=== PATIENT | female | born 1935 | race Caucasian/White ===

== ENCOUNTER → 2024-01-19 14:35 | Outpatient (REF) | payer OTHER, SELFPAY | LOC: WDC 14:35 | PROVIDERS: ATTENDING PHYSICIAN Family Medicine | DX: Z12.31 Encounter for screening mammogram for malignant neoplasm of breast (principal) | CPT/HCPCS: 77063; 77067 ==

== ENCOUNTER 2024-08-31 12:15 | Emergency (ER) | payer OTHER, SELFPAY ==
[2024-08-31 12:18] VITALS: BP 180/97
[2024-08-31 12:43] LABS: % Basophils 0.7 % (0-2); % Eosinophils 0.2 % (0-6); % Immature Granulocytes 0.2 % (0-0.5); % Lymphocytes 26.5 % (20.5-51.1); % Monocytes 8.2 % (1.7-9.3); % Neutrophils 64.2 % (42.2-75.2); Absolute Lymphocytes 1.2 10^3/uL (1.2-3.4); Absolute Monocytes 0.4 10^3/uL (0.1-0.6); Absolute Neutrophils 2.9 10^3/uL (1.4-6.5); Hematocrit 40.6 % (37.0-47.0); Hemoglobin 12.8 g/dL (12.0-16.0); Mean Corp Hgb Conc. 31.5 g/dL (33.0-37.0); Mean Corpuscular Hgb 29.4 pg (27.0-31.0); Mean Corpuscular Volume 93.1 fL (81.0-99.0); Mean Platelet Volume 9.7 fL (7.4-10.4); Nucleated Red Blood Cells % 0 %; Platelet Count 148 10^3/uL (130-400); Red Blood Cell Count 4.36 10^6/uL (4.20-5.40); Red Cell Dist. Width 12.9 % (11.5-14.5); White Blood Cell Count 4.5 10^3/uL (4.8-10.8)
[2024-08-31 12:58] LABS: ALT (SGPT) 17 U/L (0-35); AST (SGOT) 34 U/L (14-36); Albumin 4.1 g/dl (3.5-5.0); Alkaline Phosphatase 85 U/L (38-126); Blood Urea Nitrogen 21 mg/dl (7-17); Calcium 9.6 mg/dl (8.4-10.2); Carbon Dioxide 30 mmol/L (22-30); Chloride 102 mmol/L (98-107); Glucose 122 mg/dl (70-99); Potassium 4.1 mmol/L (3.5-5.1); Sodium 140 mmol/L (135-145); Total Bilirubin 1.3 mg/dl (0.2-1.3); Total Protein 7.1 g/dl (6.3-8.2); eGFR 54.19
--- NOTE | 2024-08-31 14:56 | ED.GENMED ---
History of Present Illness
General
Chief Complaint: Change in Mental Status
Source: patient and family
Exam Limitations: none
Time Seen by Provider: 08/31/24 14:28
Nursing documentation reviewed up to this point in time: agreed with
History of Present Illness
History of Present Illness:
Patient presents to ED from home secondary to sudden onset of confusion and by her son last night. Per son, all of sudden last night, around 6 PM, patient told her son that she wanted to go grocery shopping, as she had just completed returning her
taxes, which in fact did not take place. Even today, patient is stating that she did have her taxes completed yesterday. Otherwise, patient is behaving normally and no other abnormalities are noted. Upon arrival in ED, patient herself has no
complaints. Denies headache. Denies dizziness. Denies recent change in medications or diet. Denies recent illness. Denies weight loss. Denies previous history of similar symptoms.
Past History
Past History
ED Past Medical History: Other (TIAs, GERD, hiatal hernia, pneumonia, hypertension, hyperlipidemia, osteoarthritis); Negative IDDM
ED Past Surgical History: Gynecological (D&C) and Other (Cataract surgery, epidural injection 2010)
Social History
Tobacco: Former smoker
Alcohol: None
Drug: None
Personal:
Living: with family
Employment: Retired
Family History
Family History: Hypertension
Review of Systems
Review of Systems
Allergies reviewed?: Yes
All Other Systems: ROS reviewed and negative except as documented in HPI and ROS
Constitutional: Reports no symptoms
EENT: Reports no symptoms
Respiratory: Reports no symptoms
Cardiac: Reports no symptoms
ABD/GI: Reports no symptoms
Musculoskeletal: Reports no symptoms
Skin: Reports no symptoms
Neurological: Reports other (Confusion)
Phy Exam
Physical Exam
Physical Exam:
Physical Exam
General: no apparent distress, not acutely ill. afebrile
Head: nc/at. eomi
Neck: supple. normal range of motion.
Heart: s1/s2 regular rate and rhythm, no murmur.
Lungs: no acute respiratory distress. clear bilaterally
Abdomen: normal bowel sounds. not tender.
Neuro: alert and oriented x 3. no focal neurological deficits. normal speech.
Skin: no rash
Psychiatric: well kept. interactive and cooperative
Extremities: no edema. no calf tenderness
Course
Orders/Labs/Results
Orders:
Orders
08/31/24 12:26
CMP [Comprehensive Metabolic Panel] Urgent
Complete Blood Count/With Diff Urgent
TSH Reflex To Free T4 Urgent
Comment: ADD ON
Vitamin B12 Urgent
Comment: ADD ON
08/31/24 14:28
CT Head W/o Iv Contrast Urgent
Comment:
Reason For Exam: mental status change
08/31/24 14:41
Urinalysis Reflex To Culture Urgent
Date Specimen was Collected: 08/31/24
Time Specimen was Collected: 14:36
Urine Microscopic Reflex Cult Urgent
08/31/24 16:45
Add On- LAB Urgent
Tests Added?: TSH to reflex Free T4, Vitamine B12
Abnormal Lab Results
08/31/24 08/31/24
12:26 14:41
WBC 4.5 L 10^3/uL
(4.8-10.8)
MCHC 31.5 L g/dL
(33.0-37.0)
BUN 21 H mg/dl
(7-17)
Glucose 122 H mg/dl
(70-99)
Ur Occult Blood Reflex 3+ A
(Negative)
Urine RBC 11-15 A /HPF
(0-2)
Urine Bacteria (Reflex) Few A
(Negative)
Urine Albumin (Reflex) 2+ A
(Neg - Trace)
08/31/24 12:26
08/31/24 12:26
Vital Signs
Initial and Last Documented VS:
Initial Vital Signs
Temp Pulse Resp BP Pulse Ox
98.0 F 106 20 180/97 100
08/31/24 12:18 08/31/24 12:18 08/31/24 12:18 08/31/24 12:18 08/31/24 12:18
Last Documented Vital Signs
Temp Pulse Resp BP Pulse Ox
98.0 F 85 16 167/89 96
08/31/24 12:18 08/31/24 17:56 08/31/24 17:56 08/31/24 17:56 08/31/24 17:56
MDM/Problems Addressed
MDM/Problems Addressed:
Patient with unremarkable workup in ED, including blood work, CT head, and urinalysis. Patient otherwise remains afebrile, hemodynamically stable, and neurologically intact. Discussed with on-call neurology, , who feels that patient's
presenting symptoms are less likely TIA/CVA but more likely confabulation, secondary to likely dementia. Discussed with patient and daughter at bedside, including possible dehydration contributing to her symptoms, as suggested by increased BUN to
creatinine ratio, along with recommendations provided by on-call neurologist. Patient will be discharged home in stable condition, with recommendation to follow-up PCP for evaluation.
Notified pcp, , via [employer] of ED workup, findings, as well as recommendation.
*Critical Care Note
Total Time (30-74mins, 75-104mins- exclusive of procedures): Not Applicable
ED Attending Note
-
Portions of this chart may have been created with voice recognition software.� Occasional wrong word or��sound alike� substitutions may have occurred due to the inherent limitations of voice recognition software.
Discharge Plan
Departure
Patient Disposition: Home (Routine Discharge)
Date of Disposition: 08/31/24
Time of Disposition: 17:44
Patient with high blood pressure during this ER visit?: Yes
Condition: Good
Discharge Problem:
Altered mental status
Instructions: Altered Mental Status (DC)
Prescriptions:
No Action
omeprazole [Prilosec] 40 MG capsule,delayed release(DR/EC)
40 mg PO DAILY
Multiple Vitamins
1 tab PO DAILY
clopidogrel 75 MG tablet
75 mg PO DAILY
metoprolol succinate 25 MG tablet extended release 24 hr
25 mg PO DAILY
losartan 50 MG tablet
50 mg PO DAILY
Calcium
1 tab PO DAILY
atorvastatin 40 MG tablet
40 mg PO QPM
aspirin 81 MG tablet,delayed release (DR/EC)
81 mg PO DAILY
cholecalciferol (vitamin D3) [Vitamin D3] 1,000 UNIT capsule
1,000 unit PO DAILY
Referrals:
Germaine Howell MD [Family Provider] -
Activity Restrictions/Additional Instructions:
As discussed, please follow-up with your primary care physician for further evaluation and treatment.
Interventions
Interventions:
*Risk Screen - Suicide Last Done: 08/31/24 12:23
*General Assessment Last Done: 08/31/24 14:44
*Neglect/Abuse Screening Last Done: 08/31/24 15:58
ED- Fall Risk Assessment Last Done: 08/31/24 14:44
*ED COVID-19 Vaccine History Last Done: 08/31/24 14:44
*Nursing Disposition Last Done: 08/31/24 17:57
ED- Neurological Assessment Last Done: 08/31/24 14:44
ED Swallowing Screen Last Done: 08/31/24 14:44
Discharge Date and Time
Discharge Date/Time: 08/31/24 18:01
Print Language: SUDANESE
[2024-08-31 15:17] LABS: Urine Albumin 2+ (Neg - Trace); Urine Bilirubin Negative (Negative); Urine Character Clear (Clear); Urine Color Yellow; Urine Glucose Negative (Negative); Urine Ketone Negative (Negative); Urine Leukocyte Negative (Negative); Urine Nitrite Negative (Negative); Urine Occult Blood 3+ (Negative); Urine Specific Gravity 1.015 (<1.030); Urine Urobilinogen Negative (Neg - 1+)
[2024-08-31 16:05] LABS: Urine Squamous Cell 26-30 /LPF (Few)
[2024-08-31 16:06] LABS: Urine Bacteria Few (Negative)
[2024-08-31 17:56] VITALS: BP 167/89
[2024-08-31 18:14] LABS: TSH Reflex To Free T4 2.29 uIU/ml (0.47-4.68)
[2024-08-31 18:33] LABS: Vitamin B12 314 pg/ml (239-931)
== END 2024-08-31 18:01 | disposition home or self-care (01) ==
LOC: EMR 12:15
PROVIDERS: Emergency Medicine; EMERGENCY PHYSICIAN Emergency Medicine; FAMILY PHYSICIAN Family Medicine
DX: R41.82 Altered mental status, unspecified (principal); K21.9 Gastro-esophageal reflux disease without esophagitis; K44.9 Diaphragmatic hernia without obstruction or gangrene; I10 Essential (primary) hypertension; E78.00 Pure hypercholesterolemia, unspecified; M19.90 Unspecified osteoarthritis, unspecified site; Z82.49 Family history of ischemic heart disease and other diseases of the circulatory system; Z87.891 Personal history of nicotine dependence
CPT/HCPCS: 99284; 70450; 80053; 81003; 81015; 82607; 84443; 85025

== ENCOUNTER → 2024-11-14 10:53 | Outpatient (REF) | payer OTHER, SELFPAY ==
--- NOTE | 2024-11-14 11:59 | EEGC.RPT ---
Continuous EEG Report
Recording
Start Date of Data Reviewed: 11/14/24
End Date of Data Reviewed: 11/14/24
Done with Video Recording: Yes
Report
TECHNICAL REMARKS: This is a technically satisfactory eighteen channel record employing 21 disc electrodes applied according to a measured international 10-20 electrode placement system. There were no significant technical difficulties. The study
was done on a [employer] [facility].
CLINICAL HISTORY: This is an 89-year-old woman with transient encephalopathy. This study was requested to look for epileptiform abnormalities.
MEDICATION: no AED
STUDY DURATION: 27 min, 35 secs
REPORT: At the onset of the EEG, the patient is awake. The background activity consists of 9.5-10 Hz, persistent, posteriorly dominant, moderate amplitude, symmetric and rhythmic activity that is reactive to eye-opening. Anteriorly, it consists of
a mixture of low voltage indeterminate activity and 20-25 Hz, persistent, low amplitude, symmetric and rhythmic activity. Stepwise intermittent photic stimulation (1-31 Hz) does not induce any abnormalities. Hyperventilation was not performed.
Drowsiness is characterized by low amplitude mixed frequency activity, decreased eye blinking, and muscle artifact.
IMPRESSION: This is a normal awake and drowsy EEG. There is no evidence of focal slowing or epileptiform activity. A normal EEG does not rule out epilepsy. If the clinical picture warrants, a sleep-deprived awake and sleep record may be helpful.
== END ==
LOC: EEG 10:53
PROVIDERS: ATTENDING PHYSICIAN Psychiatry & Neurology Neurology; FAMILY PHYSICIAN Family Medicine
DX: R40.4 Transient alteration of awareness (principal)
CPT/HCPCS: 95816

== ENCOUNTER → 2024-12-29 09:59 | Outpatient (REF) | payer OTHER, SELFPAY ==
[2024-12-29 11:46] LABS: Iron 134 ug/dl (37-170)
[2024-12-29 11:47] LABS: CRP, Ultra Sensitive 0.36 mg/L (0.30-5.00)
[2024-12-29 11:58] LABS: Vitamin D, 25-OH*** 47.8 ng/mL (30-80)
[2024-12-29 12:03] LABS: Erythrocyte Sed Rate 32 mm/hour (0-20)
[2024-12-29 12:45] LABS: Percent Saturation 44 % (20-50); Total Iron Binding Capacity 302 ug/dl (265-497)
== END ==
LOC: REG 09:59
PROVIDERS: ATTENDING PHYSICIAN Psychiatry & Neurology Neurology; FAMILY PHYSICIAN Family Medicine
DX: R40.4 Transient alteration of awareness (principal)
CPT/HCPCS: 36415; 82306; 82652; 83540; 83550; 84425; 85652; 86141

== ENCOUNTER → 2025-01-17 13:34 | Outpatient (REF) | payer OTHER, SELFPAY | LOC: MRI 13:34 | PROVIDERS: ATTENDING PHYSICIAN Psychiatry & Neurology Neurology; FAMILY PHYSICIAN Family Medicine | DX: R40.4 Transient alteration of awareness (principal) | CPT/HCPCS: 70551; 76014; 76015 ==